=== PATIENT | female | born 1975 | race Caucasian/White ===

== ENCOUNTER 2019-03-22 13:01 | Emergency (ER) | payer BC ==
[2019-03-22] MEDS ORDERED: Phenazopyridine 100 MG Tab PO ONE ×2 (13:42→13:47)
[2019-03-22] MEDS ORDERED: Ketorolac 60 MG/2 ML SDV IM ONE (13:42)
--- NOTE | 2019-03-22 13:51 | EDM.PDOC ---
ED HPI GENERAL MEDICAL PROBLEM - General Chief Complaint: Genitourinary Problem Stated Complaint: ? UTI Time Seen by Provider: 03/22/19 13:41 Source of Information: Reports: Patient History Limitations: Reports: No Limitations - History of Present Illness INITIAL COMMENTS - FREE TEXT/NARRATIVE: Patient's a 43-year-old female who presents to the emergency department this afternoon with a complaint of low back pain and dysuria. Patient states low back pain is intermittent and became worse today. Dysuria started yesterday. Patient denies fever, flank pain, nausea, vomiting, diarrhea, vaginal discharge , suspicion of , any specific injury or insult. Onset: Gradual Onset Date: 03/21/19 Duration: Day(s): Location: Reports: Back Quality: Reports: Ache Severity: Mild Improves with: Reports: None Worsens with: Reports: Movement Context: Reports: Other (Denies specific injury or insult) Lower Back Pain Score (Numeric/FACES): 3 - Related Data Allergies Allergy/AdvReac Type Severity Reaction Status Date / Time No Known Drug Allergies Allergy Cannot Verified 03/22/19 13:11 Remember Home Meds: Home Meds Citalopram Hydrobromide [Celexa] 40 mg PO DAILY 03/22/19 [History] LORazepam 0.25 - 0.5 mg PO BID PRN 03/22/19 [History] buPROPion HCl [Wellbutrin Xl] 300 mg PO DAILY 03/22/19 [History] Past Medical History HEENT History: Reports: Impaired Vision Gastrointestinal History: Reports: None [employer]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 GI Surgical History: Reports: None Musculoskeletal Surgical History: Reports: None ED ROS GENERAL - Review of Systems Review Of Systems: ROS reveals no pertinent complaints other than HPI. Constitutional: Reports: No Symptoms HEENT: Reports: No Symptoms Respiratory: Reports: No Symptoms Cardiovascular: Reports: No Symptoms Endocrine: Reports: No Symptoms GI/Abdominal: Reports: No Symptoms. Denies: Abdominal Pain, Nausea, Vomiting : Reports: Dysuria Musculoskeletal: Reports: No Symptoms Skin: Reports: No Symptoms Neurological: Reports: No Symptoms Psychiatric: Reports: No Symptoms Hematologic/Lymphatic: Reports: No Symptoms Immunologic: Reports: No Symptoms ED EXAM,LOWER BACK PAIN/INJURY - Physical Exam Exam: See Below Exam Limited By: No Limitations General Appearance: Alert, WD/WN, No Apparent Distress Throat/Mouth: Normal Inspection, Normal Oropharynx, No Airway Compromise Respiratory/Chest: No Respiratory Distress, Lungs Clear, Normal Breath Sounds, No Accessory Muscle Use, Chest Non-Tender Cardiovascular: Regular Rate, Rhythm, No Murmur GI/Abdominal: Normal Bowel Sounds, Soft, Non-Tender, No Organomegaly, No Distention, No Abnormal Bruit, No Mass Back Exam: Paraspinal Tenderness (Lumbosacral). No: CVA Tenderness (L), CVA Tenderness (R), Vertebral Tenderness Extremities: Normal Inspection, No Pedal Edema Neurological: Alert, Normal Mood/Affect, Normal Dorsiflexion, Normal Plantar Flexion, No Motor/Sensory Deficits, Oriented x 3 Psychiatric: Normal Affect, Normal Mood Skin Exam: Warm, Dry, Intact, Normal Color, No Rash Lymphatic: No Adenopathy Course - Vital Signs Last Recorded V/S: Last Vital Signs Temp 98.3 F 03/22/19 13:13 Pulse 80 03/22/19 13:13 Resp 16 03/22/19 13:13 BP 118/70 03/22/19 13:13 Pulse Ox 98 03/22/19 13:13 - Orders/Labs/Meds Labs: Laboratory Tests 03/22/19 Range/Units 13:10 Specimen Type Urincc Urine Color Yellow (YELLOW) Urine Appearance Slightly cloudy H (CLEAR) Urine pH 5.5 (5.0-9.0) Ur Specific [place] 1.025 (1.005-1.030) Urine Protein Negative (NEGATIVE) mg/dL Urine Glucose (UA) Negative (NEGATIVE) mg/dL Urine Ketones Negative (NEGATIVE) mg/dL Urine Occult Blood Negative (NEGATIVE) Urine Nitrite Negative (NEGATIVE) Urine Bilirubin Negative (NEGATIVE) Urine Urobilinogen 0.2 (0.2-1.0) E.U./dL Ur Leukocyte Esterase Negative (NEGATIVE) Urine RBC 0-5 (0-5) /HPF Urine WBC 0-5 (0-5) /HPF Ur Epithelial Cells Few /LPF Urine Bacteria Few (NONE TO FEW) /HPF Meds: Medications Discontinued Medications Generic Name Dose Route Start Last Admin Trade Name Federico PRN Reason Stop Dose Admin Ketorolac Tromethamine 60 mg 03/22/19 13:42 03/22/19 13:50 Toradol IM 03/22/19 13:43 60 mg ONETIME ONE Administration Phenazopyridine HCl 200 mg 03/22/19 13:42 Pyridium PO 03/22/19 13:43 ONETIME ONE Phenazopyridine HCl 600 mg 03/22/19 13:47 Pyridium PO 03/22/19 13:48 ONETIME ONE - Re-Assessments/Exams Free Text/Narrative Re-Assessment/Exam: 03/22/19 13:52 Patient afebrile, vital signs stable, urinalysis negative, given Pyridium and Toradol in the ER. Patient will follow-up with PCP 03/22/19 13:54 Departure - Departure Time of Disposition: 13:53 Disposition: Home, Self-Care 01 Condition: Good Clinical Impression: Dysuria Lumbar spine strain Qualifiers: Encounter type: initial encounter Qualified Code(s): S39.012A - Strain of muscle, fascia and tendon of lower back, initial encounter - Discharge Information Instructions: Lumbosacral Strain, Dysuria Referrals: Nita Camp MD [Primary Care Provider] - Forms: ED Department Discharge Additional Instructions: Follow-up with Dr. Moss in 2-3 days. Return to emergency room sooner if symptoms continue or worsen. - Assessment/Plan Assessment:: Low back pain, dysuria Plan: Follow up PCP
== END 2019-03-22 14:00 | disposition home or self-care (01) ==
LOC: KA.ED 13:01
DX: S39.012A Strain of muscle, fascia and tendon of lower back, initial encounter (principal); R30.0 Dysuria; F41.9 Anxiety disorder, unspecified; F32.9 Major depressive disorder, single episode, unspecified; Z79.899 Other long term (current) drug therapy; X58.XXXA Exposure to other specified factors, initial encounter
CPT/HCPCS: 81001; 96372; 99283; A9270; J1885

== ENCOUNTER 2019-09-20 14:05 | Emergency (ER) | payer BC ==
[2019-09-20] MEDS: Sodium Chloride 0.9% 10 ML Syringe FLUSH PRN ×4 (14:14→14:25)
[2019-09-20] MEDS ORDERED: diphenhydrAMINE 50 MG/ML SDV IVPUSH ONE (14:15)
[2019-09-20] MEDS ORDERED: methylPREDNISolone Sodium Succinate 125 MG/2 ML SDV IVPUSH ONE (14:15)
[2019-09-20] MEDS ORDERED: Famotidine 20 MG/2 ML SDV IVPUSH ONE ×2 (14:15→14:21)
[2019-09-20] MEDS ORDERED: diphenhydrAMINE 50 MG/ML SDV ONE (14:16)
[2019-09-20] MEDS ORDERED: methylPREDNISolone Sodium Succinate 125 MG/2 ML SDV ONE (14:16)
[2019-09-20] MEDS ORDERED: Sodium Chloride 0.9% 1,000 ML IV ONE (14:21)
--- NOTE | 2019-09-20 14:27 | EDM.PDOC ---
ED HPI GENERAL MEDICAL PROBLEM - General Chief Complaint: Allergic Reaction Stated Complaint: ALLERGIC REACTION Time Seen by Provider: 09/20/19 14:15 Source of Information: Reports: Patient History Limitations: Reports: No Limitations - History of Present Illness INITIAL COMMENTS - FREE TEXT/NARRATIVE: 43 YO WF presents to ER with feeling flush, with itching and shortness of breath which came on suddenly just prior to arrival. Pt reports she has had a similar reaction to sunflower seeds in the past but never required ER evaluation. Pt reports she had a new taco seasoning today but didn't react right away. Pt reports she was cleaning the kitchen when she started to feel flush with itching and some hives followed by some shortness of breath and feeling like her tongue was swelling. Pt arrived in ER by private car. Pt able to speak without distress, no stridor, no dysphagia, no chest pain. Pt reports feeling lightheaded but denies syncope. Onset: Sudden Location: Reports: Generalized Severity: Moderate Improves with: Reports: None Worsens with: Reports: None Associated Symptoms: Reports: Rash, Shortness of Breath - Related Data Allergies Allergy/AdvReac Type Severity Reaction Status Date / Time No Known Drug Allergies Allergy Cannot Verified 03/22/19 13:11 Remember Home Meds: Home Meds Citalopram Hydrobromide [Celexa] 40 mg PO DAILY 03/22/19 [History] LORazepam 0.25 - 0.5 mg PO BID PRN 03/22/19 [History] buPROPion HCl [Wellbutrin Xl] 300 mg PO DAILY 03/22/19 [History] EPINEPHrine [Epipen] 0.3 mg IM ASDIRECTED PRN #1 pen 09/20/19 [Rx] Famotidine [Pepcid] 20 mg PO BID #20 tab 09/20/19 [Rx] predniSONE [Prednisone] 20 mg PO DAILY #15 tablet 09/20/19 [Rx] Past Medical History HEENT History: Reports: Impaired Vision Gastrointestinal History: Reports: None 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 GI Surgical History: Reports: None Musculoskeletal Surgical History: Reports: None ED ROS ALLERGIC REACTION - Review of Systems Review Of Systems: See Below Constitutional: Reports: No Symptoms HEENT: Reports: No Symptoms. Denies: Throat Swelling Respiratory: Reports: Shortness of Breath. Denies: Wheezing Cardiovascular: Reports: No Symptoms Endocrine: Reports: No Symptoms GI/Abdominal: Reports: No Symptoms : Reports: No Symptoms Musculoskeletal: Reports: No Symptoms Skin: Reports: Erythema Neurological: Reports: No Symptoms Psychiatric: Reports: No Symptoms Hematologic/Lymphatic: Reports: No Symptoms Immunologic: Reports: No Symptoms ED EXAM GENERAL NO PERIP PULSE - Physical Exam Exam: See Below Exam Limited By: No Limitations General Appearance: Alert, WD/WN, Anxious, Mild Distress Eye Exam: Bilateral Eye: PERRL Throat/Mouth: Normal Inspection, Normal Lips, Normal Teeth, Normal Gums, Normal Oropharynx, Normal Voice, No Airway Compromise Head: Atraumatic, Normocephalic Neck: Normal Inspection, Supple, Non-Tender, Full Range of Motion Respiratory/Chest: No Respiratory Distress, Lungs Clear, Normal Breath Sounds, No Accessory Muscle Use, Chest Non-Tender Cardiovascular: Normal Peripheral Pulses, Regular Rate, Rhythm, No Edema, No Gallop, No JVD, No Murmur, No Rub GI/Abdominal: Normal Bowel Sounds, Soft, Non-Tender, No Organomegaly, No Distention, No Abnormal Bruit, No Mass Back Exam: Normal Inspection, Full Range of Motion, NT Extremities: Normal Inspection, Normal Range of Motion, Non-Tender, Normal Capillary Refill, No Pedal Edema Neurological: Alert, Oriented, CN II-XII Intact, Normal Cognition, Normal Gait, Normal Reflexes, No Motor/Sensory Deficits Psychiatric: Normal Affect, Normal Mood, Anxious Skin Exam: Warm, Dry, Intact, Erythema Lymphatic: No Adenopathy Course - Vital Signs Last Recorded V/S: Last Vital Signs Temp 36.5 C 09/20/19 14:39 Pulse 91 09/20/19 14:45 Resp 14 09/20/19 14:45 BP 110/64 09/20/19 14:45 Pulse Ox 97 09/20/19 14:45 - Orders/Labs/Meds Orders: Active Orders 24 hr Category Date Time Status Peripheral IV Care [RC] . DIRECTED Care 09/20/19 15:08 Active Sodium Chloride 0.9% [Normal Saline] 1,000 ml Med 09/20/19 14:21 Active IV .BOLUS Sodium Chloride 0.9% [Saline Flush] Med 09/20/19 15:08 Active 10 ml FLUSH Q8HR PRN Peripheral IV Insertion Adult [OM.PC] Routine Oth 09/20/19 15:08 Ordered Medication Orders Sodium Chloride (Normal Saline) 1,000 mls @ 999 mls/hr IV .BOLUS ONE Stop: 09/20/19 15:21 Last Admin: 09/20/19 14:30 Dose: 999 mls/hr Sodium Chloride (Saline Flush) 10 ml FLUSH Q8HR PRN PRN Reason: keep vein open Last Admin: 09/20/19 14:25 Dose: 10 ml Admin: 09/20/19 14:20 Dose: 10 ml Admin: 09/20/19 14:18 Dose: 10 ml Admin: 09/20/19 14:14 Dose: 10 ml Meds: Medications Generic Name Dose Route Start Last Admin Trade Name Freq PRN Reason Stop Dose Admin Sodium Chloride 1,000 mls @ 999 mls/hr 09/20/19 14:21 09/20/19 14:30 Normal Saline IV 09/20/19 15:21 999 mls/hr .BOLUS ONE Administration Sodium Chloride 10 ml 09/20/19 15:08 09/20/19 14:25 Saline Flush FLUSH 10 ml Q8HR PRN Administration keep vein open Discontinued Medications Generic Name Dose Route Start Last Admin Trade Name Freq PRN Reason Stop Dose Admin Diphenhydramine HCl Confirm 09/20/19 14:16 09/20/19 15:06 Benadryl Administered 09/20/19 14:17 Not Given Dose 50 mg .ROUTE .STK-MED ONE Diphenhydramine HCl 50 mg 09/20/19 14:15 09/20/19 14:15 Benadryl IVPUSH 09/20/19 14:16 50 mg ONETIME ONE Administration Famotidine 20 mg 09/20/19 14:21 09/20/19 14:18 Pepcid IVPUSH 09/20/19 14:22 20 mg ONETIME ONE Administration Famotidine 40 mg 09/20/19 14:44 Pepcid PO 09/20/19 14:45 ONETIME ONE Famotidine 20 mg 09/20/19 14:15 09/20/19 15:06 Pepcid IVPUSH 09/20/19 14:16 Not Given ONETIME ONE Methylprednisolone Sodium Succinate Confirm 09/20/19 14:16 09/20/19 15:06 Solu-Medrol Administered 09/20/19 14:17 Not Given Dose 125 mg .ROUTE .STK-MED ONE Methylprednisolone Sodium Succinate 125 mg 09/20/19 14:15 09/20/19 14:25 Solu-Medrol IVPUSH 09/20/19 14:16 125 mg ONETIME ONE Administration Prednisone 60 mg 09/20/19 14:44 Prednisone PO 09/20/19 14:45 ONETIME ONE - Re-Assessments/Exams Free Text/Narrative Re-Assessment/Exam: 09/20/19 14:42 Pt feeling much better after Benadryl/Solumedrol/Pepcid and IVF. Pt denies shortness of breath or dyspnea. Pt states flushing has been relieved and has minimal itching at this time. Pt denies dysphagia, lightheadedness or nausea/ vomiting Departure - Departure Time of Disposition: 15:17 Disposition: Home, Self-Care 01 Condition: Good Clinical Impression: Allergic reaction Qualifiers: Encounter type: initial encounter Qualified Code(s): T78.40XA - Allergy, unspecified, initial encounter - Discharge Information Prescriptions: EPINEPHrine [Epipen] 0.3 mg IM ASDIRECTED PRN #1 pen PRN Reason: Allergies Famotidine [Pepcid] 20 mg PO BID #20 tab predniSONE [Prednisone] 20 mg PO DAILY #15 tablet Instructions: Allergies, Adult Referrals: Nita Camp MD [Primary Care Provider] - Forms: ED Department Discharge Additional Instructions: 1. Discharge home 2. prednisone 60mg everyday x 5 days 3. Pepcid 20mg twice a day x 5 days 4. continue Benadryl 50mg every 6 hours as needed 5. follow up with PCP for further evaluation and possible Allergy/Aquatics Instructor consultation 6. return to ER for worsening symptoms 7. epipen for similar reaction in the future Sepsis Event Note - Focused Exam Vital Signs: Vital Signs Temp Pulse Resp BP Pulse Ox 09/20/19 14:45 91 14 110/64 97 09/20/19 14:39 36.5 C 108 H 16 108/62 97 09/20/19 14:30 87 16 109/69 96 Date Exam was Performed: 09/20/19 Time Exam was Performed: 15:17 - My Orders Last 24 Hours: My Active Orders 09/20/19 14:21 Sodium Chloride 0.9% [Normal Saline] 1,000 ml IV .BOLUS 09/20/19 15:08 Peripheral IV Care [RC] . DIRECTED Sodium Chloride 0.9% [Saline Flush] 10 ml FLUSH Q8HR PRN Peripheral IV Insertion Adult [OM.PC] Routine - Assessment/Plan Last 24 Hours: My Active Orders 09/20/19 14:21 Sodium Chloride 0.9% [Normal Saline] 1,000 ml IV .BOLUS 09/20/19 15:08 Peripheral IV Care [RC] . DIRECTED Sodium Chloride 0.9% [Saline Flush] 10 ml FLUSH Q8HR PRN Peripheral IV Insertion Adult [OM.PC] Routine Assessment:: 1. acute allergic reaction Plan: 1. Discharge home 2. prednisone 60mg everyday x 5 days 3. Pepcid 20mg twice a day x 5 days 4. continue Benadryl 50mg every 6 hours as needed 5. follow up with PCP for further evaluation and possible Allergy/Aquatics Instructor consultation 6. return to ER for worsening symptoms 7. epipen for similar reaction in the future
[2019-09-20] MEDS ORDERED: predniSONE 20 MG Tab PO ONE (14:44)
[2019-09-20] MEDS ORDERED: Famotidine 20 MG Tab PO ONE (14:44)
== END 2019-09-20 15:40 | disposition home or self-care (01) ==
LOC: KA.ED 14:05
DX: T78.40XA Allergy, unspecified, initial encounter (principal)
CPT/HCPCS: 96361; 96374; 96375; 99284; J1200; J2930; J3490; J7030; Q3014

== ENCOUNTER 2022-08-07 09:59 | Day surgery (SDC) | payer BC ==
[2022-08-07] MEDS ORDERED: Sodium Chloride 0.9% 10 ML Syringe FLUSH PRN (10:00)
[2022-08-07] MEDS ORDERED: Lactated Ringers 1,000 ML IV SCH (10:00)
[2022-08-07] MEDS ORDERED: Propofol 200 MG/20 ML SDV IV ONE (10:00)
[2022-08-07] MEDS ORDERED: Ondansetron 4 MG/2 ML SDV IV ONE (10:00)
[2022-08-07] MEDS ORDERED: Scopolamine 1.5 MG Transdermal Patch ONE (11:40)
[2022-08-07] MEDS ORDERED: Propofol 200 MG/20 ML SDV ONE ×3 (11:40→12:09)
[2022-08-07] MEDS ORDERED: Midazolam 1 MG/ML 2 ML SDV ONE (11:40)
[2022-08-07] MEDS ORDERED: Lactated Ringers 1,000 ML ONE (11:58)
== END 2022-08-07 13:35 | disposition home or self-care (01) ==
LOC: KA.SDS 09:59
PROVIDERS: ATTEND Family Medicine
DX: K62.1 Rectal polyp (principal); K64.8 Other hemorrhoids; F41.8 Other specified anxiety disorders; G47.00 Insomnia, unspecified; Z79.899 Other long term (current) drug therapy
CPT/HCPCS: 00812; 45380; 81025; A9270; J2250; J2405; J2704; J7120

== ENCOUNTER 2024-05-26 17:18 | Emergency (ER) | payer BC ==
[2024-05-26] MEDS ORDERED: methylPREDNISolone Sodium Succinate 125 MG/2 ML SDV ONE (17:21)
[2024-05-26] MEDS ORDERED: Sodium Chloride 0.9% 1,000 ML ONE (17:22)
[2024-05-26] MEDS ORDERED: diphenhydrAMINE 50 MG/ML SDV ONE (17:22)
[2024-05-26] MEDS: diphenhydrAMINE 50 MG/ML SDV IVPUSH ONE (17:26)
[2024-05-26] MEDS: Famotidine 20 MG/2 ML SDV IVPUSH ONE (17:28)
[2024-05-26] MEDS: Sodium Chloride 0.9% 1,000 ML IV ONE (17:30)
[2024-05-26] MEDS: methylPREDNISolone Sodium Succinate 125 MG/2 ML SDV IVPUSH ONE (17:31)
== END 2024-05-26 18:40 | disposition home or self-care (01) ==
LOC: KA.ED 17:18
DX: K14.8 Other diseases of tongue (principal); T78.1XXA Other adverse food reactions, not elsewhere classified, initial encounter; Z86.16 Personal history of COVID-19; Z79.899 Other long term (current) drug therapy
CPT/HCPCS: 96361; 96374; 96375; 99283; 99283-25; J1200; J2919; J3490; J7030